=== PATIENT | male | born 1960 | race Hispanic/Latino ===

== ENCOUNTER 2025-02-21 15:50 | Emergency (ER) | payer OTHER ==
[~2025-02-21] VITALS: Ht 160 cm; Wt 77.1 kg
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
[2025-02-21] MEDS: acetaMINOPHEN 500 MG TABLET PO STA (17:02)
[2025-02-21] MEDS: ibuPROFEN 600 MG TABLET PO STA (17:02)
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
[2025-02-21 17:14] VITALS: BP 115/82; PULSE 85; RESP 20; TEMP 97.5; O2SAT 99
== END 2025-02-21 17:20 | disposition home or self-care (01) ==
LOC: EDH 15:50
DX: M62.838 Other muscle spasm (principal); E11.9 Type 2 diabetes mellitus without complications; I10 Essential (primary) hypertension; V89.2XXA Person injured in unspecified motor-vehicle accident, traffic, initial encounter; Y93.89 Activity, other specified; Y92.89 Other specified places as the place of occurrence of the external cause; Y99.8 Other external cause status
CPT/HCPCS: 72040; 72100; 99284